=== PATIENT | female | born 1970 | race Two or more races ===

== ENCOUNTER 2017-08-26 10:03 | Emergency (ER) | payer MEDICAID ==
[~2017-08-26] VITALS: Ht 160 cm; Wt 65.8 kg
[~2017-08-26 10:03] MED LIST: DICY20TA66 PO; PROM25TA5 PO; URSO300C9 PO
[2017-08-26 10:49] LABS: Eosinophils # (auto) 0 uL; Lymphocytes # (auto) 0.9 uL; Monocytes # (auto) 0.3 uL; Neutrophils # (auto) 2.5 uL; Nucleated Red Blood Cells % 0.1 %; White Blood Cell 3.8 10^3/uL (4.4-10.8)
[2017-08-26 10:51] LABS: Basophils # (auto) 0.1 uL; Basophils % (auto) 1.4 % (0.0-2.0); Eosinophils % (auto) 0.3 % (0.0-7.0); Hematocrit 27.8 % (36.0-46.0); Hemoglobin 8.1 g/dL (12.2-16.2); Lymphocytes % (auto) 24.5 % (10.0-50.0); Mean Corpuscular Hemoglobin 18.2 pg (28.0-32.0); Mean Corpuscular Hgb Conc. 29.1 g/dL (32.0-36.0); Mean Corpuscular Volume 62.3 fL (80.0-100.0); Monocytes % (auto) 8.5 % (0.0-12.0); Neutrophils % (auto) 65.3 % (37.0-80.0); Platelet Count (auto) 459 10^3/uL (140-450); Red Blood Cells 4.46 10^6/uL (4.0-5.20)
[2017-08-26 10:55] LABS: Red Cell Distribution Width 20.8 % (11.8-14.3)
[2017-08-26] MEDS ORDERED: SODIUM CHLORIDE 0.9% 1,000 ML IV ONE (11:15)
[2017-08-26 14:31] VITALS: BP 118/70
== END 2017-08-26 14:32 | disposition home or self-care (01) ==
LOC: ER 10:03
DX: D25.9 Leiomyoma of uterus, unspecified (principal); F17.210 Nicotine dependence, cigarettes, uncomplicated; Z88.6 Allergy status to analgesic agent
CPT/HCPCS: 36415; 76830; 76856; 81025; 85025; 93005; 96360; 96361; 99285; J7030